=== PATIENT | male | born 1940 | race Caucasian/White ===

== ENCOUNTER → 2016-05-21 | Outpatient (CLI) | payer MEDICARE, OTHER ==
--- OUTSIDE RECORDS SUMMARY | 2016-05-21 11:24 | XMS REPORT | Continuity of Care Document ---
Author Author [facility] Organization [facility] Address Unknown Phone Unavailable Allergies Active Description Code Type Severity Reaction Onset Reported/Identified Relationship to Patient Clinical Status Yes No Known Drug Allergies [id number] Drug Allergy Unknown N/ A 04/28/2010 Medications Problems Date Dx Coded Attending Type Code Diagnosis Diagnosed By 01/09/2015 IGNACIO CHACON Ot 202.80 02/15/2015 BHARATHI WALL DO S Ot E11.9 02/15/2015 DANIELLE WALL DOQUELINE S Ot E78.5 02/15/2015 EDI DANIELLE BERNABEBHARATHI S Ot I10 03/06/2015 KASSIDY DIAL CHEMIST INSTRUMENTATION Ot C85.95 03/06/2015 KASSIDY DIAL CHEMIST INSTRUMENTATION Ot Z08 03/06/2015 KASSIDY DIAL CHEMIST INSTRUMENTATION Ot Z85.51 03/06/2015 KASSIDY DIAL CHEMIST INSTRUMENTATION Ot Z92.21 03/06/2015 DANIELLE WALL DOQUELINE S Ot E11.9 03/06/2015 DANIELLE WALL DOQUELINE S Ot E78.5 03/06/2015 DANIELLE WALL DOQUELINE S Ot I10 02/21/2016 IGNACIO CHACON Ot 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, INTRAPELV 02/21/2016 IGNACIO CHACON Ot I10 ESSENTIAL (PRIMARY) HYPERTENSION 02/21/2016 IGNACIO CHACON Ot K21.9 GASTRO-ESOPHAGEAL REFLUX DISEASE WITHOUT 02/21/2016 IGNACIO CHACON Ot R10.32 LEFT LOWER QUADRANT PAIN 02/21/2016 IGNACIO CHACON Ot R91.8 OTHER NONSPECIFIC ABNORMAL FINDING OF MAHAD 02/21/2016 IGNACIO CHACON Ot Z08 ENCNTR FOR FOLLOW-UP EXAM AFTER TRTMT FO 02/21/2016 IGNACIO CHACON Ot Z79.899 OTHER INTERMEDIATE (CURRENT) DRUG THERAPY 02/21/2016 INES, BOBAN N Ot Z85.51 PERSONAL HISTORY OF MALIGNANT NEOPLASM O 02/21/2016 INESIGNACIO PHILLIPS N Ot Z92.21 PERSONAL HISTORY OF ANTINEOPLASTIC CHEMO 02/21/2016 INESIGNACIO PHILLIPS N Ot Z92.3 PERSONAL HISTORY OF IRRADIATION 02/26/2016 IGNACIO CHACON N Ot 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, INTRAPELV 02/26/2016 INESDENZEL PHILLIPSAN N Ot I10 ESSENTIAL (PRIMARY) HYPERTENSION 02/26/2016 INESDENZEL PHILLIPSAN N Ot K21.9 GASTRO-ESOPHAGEAL REFLUX DISEASE WITHOUT 02/26/2016 INES BOBAN N Ot R10.32 LEFT LOWER QUADRANT PAIN 02/26/2016 INESDENZELAN N Ot R91.8 OTHER NONSPECIFIC ABNORMAL FINDING OF MAHAD 02/26/2016 IGNACIO CHACON N Ot Z08 ENCNTR FOR FOLLOW-UP EXAM AFTER TRTMT FO 02/26/2016 IGNACIO CHACON N Ot 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 02/26/2016 IGNACIO CHACON N Ot Z85.51 PERSONAL HISTORY OF MALIGNANT NEOPLASM O 02/26/2016 INES, BOBVI N Ot Z92.21 PERSONAL HISTORY OF ANTINEOPLASTIC CHEMO 02/26/2016 INESDENZEL PHILLIPSAN N Ot Z92.3 PERSONAL HISTORY OF IRRADIATION 03/13/2016 IGNACIO CHACON N Ot 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, INTRAPELV 03/13/2016 INES, BOBAN N Ot I10 ESSENTIAL (PRIMARY) HYPERTENSION 03/13/2016 IGNACIO CHACON N Ot K21.9 GASTRO-ESOPHAGEAL REFLUX DISEASE WITHOUT 03/13/2016 INESDENZELAN N Ot R10.32 LEFT LOWER QUADRANT PAIN 03/13/2016 INES BOBAN N Ot R91.8 OTHER NONSPECIFIC ABNORMAL FINDING OF MAHAD 03/13/2016 IGNACIO CHACON N Ot Z08 ENCNTR FOR FOLLOW-UP EXAM AFTER TRTMT FO 03/13/2016 IGNACIO CHACON N Ot 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 Visit Date/Time Discharge Status Pt. Type Provider Facility Loc./Unit Complaint [id number] 02/14/2015 16:21:00 2014 23:59:59 CLS Outpatient ALBAINDU BERNABEBHARATHI Sara [facility] LAB [id number] 02/14/2015 08:54:00 2014 23:59:59 CLS Outpatient KASSIDY DIAL CHEMIST INSTRUMENTATION [facility] ONC [id number] 12/17/2014 09:46:00 2014 23:59:59 CLS Outpatient IGNACIO CHACON [facility] ONC [id number] 12/21/2013 08:31:00 2013 23:59:59 CLS Outpatient [id number] 12/18/2013 10:16:00 2013 23:59:59 CLS Outpatient [id number] 12/18/2013 08:59:00 2013 23:59:59 CLS Outpatient [id number] 06/27/2013 11:26:00 2013 23:59:59 CLS Outpatient [id number] 02/20/2016 08:45:00 ACT Outpatient IGNACIO CHACON [facility] ONC
--- NOTE | 2016-05-21 12:44 | Diagnostic Imaging Report ---
PROCEDURE: MRI lumbar spine. TECHNIQUE: Multiplanar, multisequence MRI of the lumbar spine was performed without contrast. INDICATION: Low back pain. History of lymphoma and prior radiation therapy. COMPARISON: MRI lumbar spine without and with IV contrast 06/13/2008. FINDINGS: Examination is limited by motion artifact. There are 5 lumbar-type vertebral bodies presumed for the purposes of this report. Normal alignment. Vertebral body heights are maintained. Bone marrow signal is unremarkable. No abnormal signal in the conus which terminates at L1. Normal configuration of the cauda equina without evidence for arachnoiditis. Presumed right renal cyst. The visualized paravertebral soft tissues are otherwise unremarkable. L1-L2: No spinal canal, lateral recess or neuroforaminal narrowing. L2-L3: Small broad-based disc bulge and ligamentous hypertrophy contribute to mild to moderate spinal canal narrowing. Disc space height loss and facet arthropathy result in moderate right and mild left neuroforaminal narrowing. L3-L4: Broad-based disc bulge, ligamentous hypertrophy and facet arthropathy all contribute to advanced spinal canal narrowing with complete loss of CSF signal about the cauda equina nerve roots. Disc space height loss and facet arthropathy also result in advanced bilateral neuroforaminal narrowing. L4-L5: Broad-based disc bulge, ligamentous hypertrophy and facet arthropathy result in moderate spinal canal narrowing. Disc space height loss and facet arthropathy also contribute to advanced bilateral neuroforaminal narrowing. L5-S1: Broad-based disc bulge results in mild spinal canal narrowing. Disc space height loss and facet arthropathy contribute to advanced bilateral neuroforaminal narrowing. There is a probable pars defect on the left at L5. IMPRESSION: 1. 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 There is less substantial spinal canal narrowing at L2-L3 and L5-S1. 2. Multilevel moderate and advanced neuroforaminal narrowing detailed above. Dictated by: Dictated on workstation # [id number]
== END ==
LOC: RAD 11:21
PROVIDERS: ATTEND Family Medicine
DX: M47.816 Spondylosis without myelopathy or radiculopathy, lumbar region (principal); M48.06 Spinal stenosis, lumbar region
CPT/HCPCS: 72148

== ENCOUNTER 2017-04-06 13:42 | Outpatient (RCR) | payer MEDICARE, OTHER ==
[2017-03-04 10:30] LABS: BASOPHILS # (AUTO) 0.1 10^3/uL (0.0-0.1); BASOPHILS % (AUTO) 1 % (0-10); EOSINOPHILS # (AUTO) 0.4 10^3/uL (0.0-0.3); EOSINOPHILS % (AUTO) 5 % (0-10); HEMATOCRIT 43 % (40-54); HEMOGLOBIN 14.5 G/DL (13.3-17.7); LYMPHOCYTES # (AUTO) 2.4 X 10^3 (1.0-4.0); LYMPHOCYTES % (AUTO) 31 % (12-44); MEAN CORPUSCULAR HEMOGLOBIN 31 PG (25-34); MEAN CORPUSCULAR HGB CONC 34 G/DL (32-36); MEAN CORPUSCULAR VOLUME 91 FL (80-99); MONOCYTES # (AUTO) 0.6 X 10^3 (0.0-1.0); MONOCYTES % (AUTO) 8 % (0-12); NEUTROPHILS # (AUTO) 4.2 X 10^3 (1.8-7.8); NEUTROPHILS % (AUTO) 55 % (42-75); PLATELET COUNT 201 10^3/uL (130-400); RED BLOOD COUNT 4.69 10^6/uL (4.35-5.85); RED CELL DISTRIBUTION WIDTH 13.1 % (10.0-14.5); WHITE BLOOD COUNT 7.7 10^3/uL (4.3-11.0)
[2017-03-04 10:52] LABS: ALANINE AMINOTRANSFERASE 75 U/L (0-55); ALBUMIN 4.3 GM/DL (3.2-4.5); ALKALINE PHOSPHATASE 99 U/L (40-136); BILIRUBIN,TOTAL 0.5 MG/DL (0.1-1.0); BUN/CREATININE RATIO 14; CALCIUM 9.5 MG/DL (8.5-10.1); CARBON DIOXIDE 25 MMOL/L (21-32); CHLORIDE 104 MMOL/L (98-107); CREATININE SERUM 1.13 MG/DL (0.60-1.30); GFR ESTIMATED > 60; GLUCOSE 145 MG/DL (70-105); POTASSIUM 4.6 MMOL/L (3.6-5.0); SODIUM 138 MMOL/L (135-145); TOTAL PROTEIN 7.5 GM/DL (6.4-8.2)
[2017-04-06 14:20] LABS: ALANINE AMINOTRANSFERASE 106 U/L (0-55); ALBUMIN 4.3 GM/DL (3.2-4.5); ALKALINE PHOSPHATASE 84 U/L (40-136); BILIRUBIN,TOTAL 0.5 MG/DL (0.1-1.0); BUN/CREATININE RATIO 16; CALCIUM 9.3 MG/DL (8.5-10.1); CARBON DIOXIDE 25 MMOL/L (21-32); CHLORIDE 105 MMOL/L (98-107); CREATININE SERUM 1.17 MG/DL (0.60-1.30); GFR ESTIMATED > 60; GLUCOSE 105 MG/DL (70-105); POTASSIUM 4.3 MMOL/L (3.6-5.0); SODIUM 139 MMOL/L (135-145); TOTAL PROTEIN 7.8 GM/DL (6.4-8.2)
== END 2017-06-02 | disposition home or self-care (01) ==
LOC: ONC 13:42
PROVIDERS: ATTEND Internal Medicine Hematology & Oncology
DX: Z08 Encounter for follow-up examination after completed treatment for malignant neoplasm (principal); C83.36 Diffuse large B-cell lymphoma, intrapelvic lymph nodes; Z85.51 Personal history of malignant neoplasm of bladder; R10.32 Left lower quadrant pain; I10 Essential (primary) hypertension; K21.9 Gastro-esophageal reflux disease without esophagitis; R91.8 Other nonspecific abnormal finding of lung field; R74.8 Abnormal levels of other serum enzymes; Z92.21 Personal history of antineoplastic chemotherapy; Z92.3 Personal history of irradiation; Z79.899 Other long term (current) drug therapy
CPT/HCPCS: 36415; 80053; 83615; 85025; 99213

== ENCOUNTER → 2017-04-09 | Outpatient (CLI) | payer MEDICARE, OTHER ==
[~2017-04-09] MED LIST: CATHETER FLUSH 10 ML SYR IV PRN; IOHEXOL 350 MG/ML 100 ML (OMNIPAQUE 350) VIAL IV ONE; NS 100 ML (IVPB) BAG IV ONE
--- NOTE | 2017-04-09 10:00 | Diagnostic Imaging Report ---
PROCEDURE: CT abdomen with contrast only. TECHNIQUE: Multiple contiguous axial images were obtained through the abdomen after the administration of intravenous contrast. INDICATION: Elevated liver enzymes FINDINGS: The liver is of lower density than usually seen. This does suggest fatty metamorphosis. The liver does not appear to be enlarged. There is no focal mass involving the liver. The biliary tree is not abnormally dilated either. When compared to the previous CT abdomen/pelvis exam of 09/19/2009, there does not appear to have been any significant change in the appearance of the liver. The spleen, pancreas, adrenals, kidneys, gallbladder, aorta and inferior vena cava are unremarkable for an acute abnormality. The stomach is not well-distended and consequently difficult to assess. The lung bases are clear. The bone windows show no evidence for a fracture or for a destructive lesion. IMPRESSION: 1. The appearance of liver does suggest fatty metamorphosis. There is no focal mass involving the liver and the biliary tree is not normally dilated. When compared to the previous study, there does not appear to have been any significant change. 2. There is no acute abnormality of the abdomen. Dictated by: Dictated on workstation # [id number]
== END ==
LOC: RAD 07:30
PROVIDERS: ATTEND Nurse Practitioner Adult Health
DX: R74.8 Abnormal levels of other serum enzymes (principal); Z85.72 Personal history of non-Hodgkin lymphomas
CPT/HCPCS: 74160

== ENCOUNTER → 2017-04-15 | Outpatient (CLI) | payer MEDICARE, OTHER ==
--- NOTE | 2017-04-15 10:47 | Diagnostic Imaging Report ---
INDICATION: Left hip pain. FINDINGS: An AP view of the pelvis and two additional views of the left hip show postop changes from total left hip arthroplasty. The position and alignment appear normal. There is no acute fracture or evidence of loosening. IMPRESSION: Good alignment of the left hip following total hip arthroplasty. Dictated by: Dictated on workstation # [id number]
== END ==
LOC: RAD 08:11
DX: M25.552 Pain in left hip (principal); Z96.642 Presence of left artificial hip joint

== ENCOUNTER → 2017-08-19 | Outpatient (CLI) | payer MEDICARE, OTHER ==
[~2017-08-19] MED LIST changes: -CATHETER FLUSH 10 ML SYR IV PRN; +GLIM2TAB PO; -IOHEXOL 350 MG/ML 100 ML (OMNIPAQUE 350) VIAL IV ONE; +METF10002 PO; -NS 100 ML (IVPB) BAG IV ONE
--- NOTE | 2017-08-19 17:04 | Diagnostic Imaging Report ---
INDICATION: Hip revision. COMPARISON: 04/15/2017 FINDINGS: AP view of the pelvis and 2 views of the left hip are obtained. There are postoperative changes of left hip arthroplasty. There has been interval revision since the prior study. No unusual lucency or reaction is seen about the prosthetic component which appears to be in good alignment. No acute fracture, malalignment or osseous destructive process is suspected. There is mild degenerative joint space narrowing of the right hip. IMPRESSION: Interval revision of the left hip arthroplasty without evidence of a complicating process. No acute abnormality is suspected. Dictated by: Dictated on workstation # [id number]
== END ==
LOC: RAD 15:56
PROVIDERS: ATTEND Physician Assistant
DX: Z96.641 Presence of right artificial hip joint (principal)

== ENCOUNTER 2017-09-07 05:59 | Outpatient (CLI) | payer MEDICARE, OTHER ==
[~2017-09-07] VITALS: Ht 172.7 cm; Wt 84.8 kg
[2017-09-07] MEDS ORDERED: METF10002 PO (16:24)
[2017-09-07] MEDS ORDERED: GLIM2TAB PO (16:24)
== END 2017-09-07 16:27 | disposition home or self-care (01) ==
LOC: PREOP 05:59
PROVIDERS: ATTEND Specialist
DX: Z01.818 Encounter for other preprocedural examination (principal)

== ENCOUNTER 2017-09-10 07:45 | Day surgery (SDC) | payer MEDICARE, OTHER ==
[~2017-09-10] VITALS: Ht 172.7 cm; Wt 84.8 kg
[2017-09-10 08:00] VITALS: BP 140/72
[2017-09-10] MEDS: TETRACAINE 0.5% OPHTH SOLN 4 ML BTL (SINGLE DOSE ONLY) OU PRN ×2 (08:06→08:11)
[2017-09-10] MEDS: TROPICAMIDE 1% OPH SOLN (MYDRIACYL) 15 ML BTL OU PRN ×2 (08:07→08:11)
[2017-09-10] MEDS: PHENYLEPHRINE 10% OPHTH (NEO-SYN) 5 ML BTL OU PRN ×2 (08:07→08:11)
--- NOTE | 2017-09-10 08:46 | Ophthalmologist Pre-Op Note ---
Pre-Operative Progress Note H&P Reviewed The H&P was reviewed, patient examined and no changes noted. Date H&P Reviewed: Sep 10, 2017 Time H&P Reviewed: 08:46 Pre-Op Dx Secondary Cataract, Right Eye RASHEEDA KUMAR MD Sep 10, 2017 08:46
[2017-09-10 08:55] VITALS: BP 140/72
--- NOTE | 2017-09-10 08:57 | Ophthalmology Operative Report ---
YAG Capsulotomy PREOPERATIVE DIAGNOSIS: Secondary Cataract Right Eye POSTOPERATIVE DIAGNOSIS: Secondary Cataract Right Eye PROCEDURE: YAG Capsulotomy, right eye SURGEON: Ever Kumar ANESTHESIA: Topical anesthesia COMPLICATIONS: None ESTIMATED BLOOD LOSS: Minimal DESCRIPTION OF PROCEDURE: After proper informed consent was obtained, the patient's, a 77 male, right eye received one drop of Tropicamide and one drop of Tetracaine. The patient was then placed at the YAG laser and using a power of [ 3.2] millijoules and [ 16] bursts were used to fashion a central capsulotomy. The patient tolerated the procedure well without complications and the patient's pressure was [ 12] shortly after the laser. EVER KUMAR MD Sep 10, 2017 08:57
--- NOTE | 2017-09-10 10:33 | Anesthesia-General Post-Op ---
MAC Patient Condition Mental Status/LOC: Same as Preop Cardiovascular: Satisfactory Nausea/Vomiting: Absent Respiratory: Satisfactory Pain: Controlled Complications: Absent Post Op Complications Complications None Follow Up Care/Instructions Patient Instructions None needed. Anesthesiology Discharge Order Discharge Order Patient is doing well, no complaints, stable vital signs, no apparent adverse anesthesia problems. No complications reported per nursing. PEYMAN SUAREZ CRNA Sep 10, 2017 10:33
== END 2017-09-10 08:55 | disposition home or self-care (01) ==
LOC: SDC 07:45
PROVIDERS: ATTEND Specialist
DX: H26.40 Unspecified secondary cataract (principal); Z85.51 Personal history of malignant neoplasm of bladder; Z85.72 Personal history of non-Hodgkin lymphomas; Z96.611 Presence of right artificial shoulder joint; Z96.612 Presence of left artificial shoulder joint; Z96.642 Presence of left artificial hip joint; Z87.891 Personal history of nicotine dependence

== ENCOUNTER → 2018-03-03 | Outpatient (CLI) | payer MEDICARE, OTHER ==
[~2018-03-03] MED LIST changes: +METF-399 PO; -METF10002 PO
[2018-03-03 10:04] LABS: BASOPHILS % (AUTO) 1 % (0-10); EOSINOPHILS # (AUTO) 0.3 10^3/uL (0.0-0.3); EOSINOPHILS % (AUTO) 4 % (0-10); HEMATOCRIT 41 % (40-54); HEMOGLOBIN 13.3 G/DL (13.3-17.7); LYMPHOCYTES # (AUTO) 1.7 X 10^3 (1.0-4.0); LYMPHOCYTES % (AUTO) 25 % (12-44); MEAN CORPUSCULAR HEMOGLOBIN 30 PG (25-34); MEAN CORPUSCULAR HGB CONC 33 G/DL (32-36); MEAN CORPUSCULAR VOLUME 92 FL (80-99); MEAN PLATELET VOLUME 8.8 FL (7.4-10.4); MONOCYTES # (AUTO) 0.8 X 10^3 (0.0-1.0); MONOCYTES % (AUTO) 11 % (0-12); NEUTROPHILS # (AUTO) 4.1 X 10^3 (1.8-7.8); NEUTROPHILS % (AUTO) 59 % (42-75); PLATELET COUNT 203 10^3/uL (130-400); RED BLOOD COUNT 4.44 10^6/uL (4.35-5.85); RED CELL DISTRIBUTION WIDTH 12.9 % (10.0-14.5); WHITE BLOOD COUNT 6.9 10^3/uL (4.3-11.0)
[2018-03-03 10:22] LABS: ALBUMIN 4.1 GM/DL (3.2-4.5); BILIRUBIN,TOTAL 0.3 MG/DL (0.1-1.0); CALCIUM 9.1 MG/DL (8.5-10.1); CREATININE SERUM 1.19 MG/DL (0.60-1.30); POTASSIUM 4.5 MMOL/L (3.6-5.0); TOTAL PROTEIN 7.3 GM/DL (6.4-8.2)
== END ==
LOC: EDSTATUS 06-03 09:46 → ONC 09:51
PROVIDERS: ATTEND Internal Medicine Hematology & Oncology
DX: Z08 Encounter for follow-up examination after completed treatment for malignant neoplasm (principal); C83.36 Diffuse large B-cell lymphoma, intrapelvic lymph nodes; Z85.51 Personal history of malignant neoplasm of bladder; R10.32 Left lower quadrant pain; I10 Essential (primary) hypertension; K21.9 Gastro-esophageal reflux disease without esophagitis; R91.8 Other nonspecific abnormal finding of lung field; R74.8 Abnormal levels of other serum enzymes; Z92.21 Personal history of antineoplastic chemotherapy; Z92.3 Personal history of irradiation; Z79.899 Other long term (current) drug therapy
CPT/HCPCS: 36415; 80053; 83615; 85025; 99213

== ENCOUNTER → 2018-03-03 | Outpatient (CLI) | payer MEDICARE, OTHER ==
--- NOTE | 2018-03-04 08:04 | Diagnostic Imaging Report ---
PA and lateral chest at 11:15. Indication: Cough, COPD. The heart size is within normal limits and stable when compared to 09/19/2009. The lungs are clear and perhaps mildly hyperexpanded. There is no evidence for failure, pneumonia or for pleural effusion. The mediastinum is not widened. In the interval since the prior exam, the patient has undergone a fusion of the lower cervical spine and bilateral total shoulder arthroplasty procedure. The orthopedic hardware where visualized seems to be in good position. Impression: 1. There is chronic pulmonary disease but there is no sign of an acute cardiopulmonary abnormality. 2. There are interval postoperative changes of the cervical spine and both shoulder joints. Dictated by: Dictated on workstation # [id number]
== END ==
LOC: RAD 10:33
PROVIDERS: ATTEND Internal Medicine Hematology & Oncology
DX: J44.9 Chronic obstructive pulmonary disease, unspecified (principal); Z98.1 Arthrodesis status; Z96.612 Presence of left artificial shoulder joint; Z96.611 Presence of right artificial shoulder joint
CPT/HCPCS: 71046